=== PATIENT | female | born 1960 | race American Indian/Alaskan Native ===

== ENCOUNTER 2017-01-19 17:17 | Emergency (ER) | payer MEDICARE ==
[2017-01-19 18:13] LABS: Basophils % (Auto) 0.1 % (0.0-1.8); Eosinophils % (Auto) 0.7 % (0.0-4.3); Hematocrit 38.7 % (30.3-42.9); Hemoglobin 13.2 gm/dl (10.1-14.3); Mean Corpuscular HGB Conc 34 % (30-34); Mean Corpuscular Hemoglobin 33 pg (28-32); Mean Corpuscular Volume 95 fl (79-97); Platelet Count 244 K/mm3 (140-440); Red Blood Count 4.05 M/mm3 (3.65-5.03); Red Cell Distribution Width 13.3 % (13.2-15.2)
[2017-01-19 18:30] LABS: Anion Gap 14 mmol/L; BUN/Creatinine Ratio 15.71; Blood Urea Nitrogen 11 mg/dL (7-17); Calcium 8.8 mg/dL (8.4-10.2); Carbon Dioxide 29 mmol/L (22-30); Chloride 100.7 mmol/L (98-107); Glucose 101 mg/dL (65-100); Sodium 140 mmol/L (137-145)
--- NOTE | 2017-01-19 19:07 | XRay Report ---
FINAL REPORT EXAM: XR ELBOW 3 LT HISTORY: swelling / pain left elbow s/p bite possible infe TECHNIQUE: Three views of the left elbow PRIORS: None. FINDINGS: The bones are normally aligned and mineralized. The joint spaces are well-preserved. There is no evidence of acute fracture. There is soft tissue swelling along the olecranon. IMPRESSION: No evidence of acute fracture or subluxation. Tissue swelling along the olecranon. Question olecranon bursitis. This could be confirmed with ultrasound.
[2017-01-19 21:40] VITALS: BP 176/96
--- NOTE | 2017-01-19 22:39 | Emergency Department Report ---
ED Animal Bite HPI - General Chief Complaint: Animal Bite Stated Complaint: SPIDER BITE LEFT ARM Time Seen by Provider: 01/19/17 21:58 Source: patient Mode of arrival: Ambulatory Limitations: No Limitations - History of Present Illness Initial Comments: 56-year-old female past medical history anxiety presents with complaint of 5 days of redness and swelling to left lateral forearm near elbow. Patient is visibly ranging her left elbow. Subjective fever chills. Denies any nausea or vomiting. Denies any direct trauma. Patient states she may have been bitten by a spider near her forearm a few days ago. Visible redness and swelling and erythema to left elbow region MD Complaint: animal bite Onset/Timin -: days(s) Left: Elbow (redness and swelling left elbow region, appears cellulitic) Animal Control Notified: No Pain Description: burning Severity scale (0 -10): 6 Context: unprovoked - Related Data Patient Tetanus UTD: No Previous Rx's Medication Instructions Recorded Last Taken Type Acetaminophen/Codeine [Tylenol 1 tab PO Q6H PRN #12 tab 01/20/17 Unknown Rx /Codeine # 3 tab] Clindamycin [Clindamycin CAP] 300 mg PO Q6H #28 capsule 01/20/17 Unknown Rx Hydrochlorothiazide [HCTZ] 12.5 mg PO QDAY #30 capsule 01/20/17 Unknown Rx Ibuprofen [Motrin] 600 mg PO Q8H PRN #25 tablet 01/20/17 Unknown Rx Allergies Allergy/AdvReac Type Severity Reaction Status Date / Time Penicillins Allergy Shortness Verified 01/19/17 17:36 of Breath sulfamethoxazole Allergy Shortness Verified 01/19/17 17:36 [From Bactrim] of Breath trimethoprim [From Bactrim] Allergy Shortness Verified 01/19/17 17:36 of Breath ED Review of Systems ROS: Stated complaint: SPIDER BITE LEFT ARM Other details as noted in HPI Constitutional: denies: chills, fever Eyes: denies: eye pain, eye discharge, vision change ENT: denies: ear pain, throat pain Respiratory: denies: cough, shortness of breath, wheezing Cardiovascular: denies: chest pain, palpitations Endocrine: no symptoms reported Gastrointestinal: denies: abdominal pain, nausea, diarrhea Genitourinary: denies: urgency, dysuria, discharge Musculoskeletal: denies: back pain, joint swelling, arthralgia Skin: as per HPI, change in color (redness), pruritus. denies: rash, lesions Neurological: denies: headache, weakness, paresthesias Psychiatric: denies: anxiety, depression Hematological/Lymphatic: denies: easy bleeding, easy bruising ED Past Medical Hx - Past Medical History Hx Hypertension: Yes Hx HIV: No - Surgical History Additional Surgical History: in vitro fert - Social History Smoking Status: Current Every Day Smoker Substance Use Type: Alcohol - Medications Home Medications: Home Medications Medication Instructions Recorded Confirmed Last Taken Type Acetaminophen/Codeine [Tylenol 1 tab PO Q6H PRN #12 tab 01/20/17 Unknown Rx /Codeine # 3 tab] Clindamycin [Clindamycin CAP] 300 mg PO Q6H #28 capsule 01/20/17 Unknown Rx Hydrochlorothiazide [HCTZ] 12.5 mg PO QDAY #30 capsule 01/20/17 Unknown Rx Ibuprofen [Motrin] 600 mg PO Q8H PRN #25 tablet 01/20/17 Unknown Rx ED Physical Exam - General Limitations: No Limitations General appearance: alert, in no apparent distress - Head Head exam: Present: atraumatic, normocephalic - Eye Eye exam: Present: normal appearance, PERRL, EOMI - ENT ENT exam: Present: mucous membranes moist - Neck Neck exam: Present: normal inspection - Respiratory Respiratory exam: Present: normal lung sounds bilaterally. Absent: respiratory distress - Cardiovascular Cardiovascular Exam: Present: regular rate, normal rhythm. Absent: systolic murmur, diastolic murmur, rubs, gallop - GI/Abdominal GI/Abdominal exam: Present: soft, normal bowel sounds - Extremities Exam Extremities exam: Present: normal inspection - Expanded Upper Extremity Exam Left Shoulder Exam: Present: normal inspection, full ROM Upper Arm exam: Present: normal inspection, full ROM Elbow exam: Present: full ROM (elbow felxion and extension fully itnact on exam) , tenderness, swelling, other (small abscess below left elbow lateral forearm) Forearm Wrist exam: Present: normal inspection, full ROM Hand Wrist exam: Present: normal inspection, full ROM Vascular: Present: radial pulse (distal pulses intact) - Back Exam Back exam: Present: normal inspection - Neurological Exam Neurological exam: Present: alert, oriented X3, CN II-XII intact, normal gait - Psychiatric Psychiatric exam: Present: normal affect, normal mood - Skin Skin exam: Present: warm, dry, intact, normal color. Absent: rash ED Course Vital Signs 01/19/17 01/19/17 17:29 21:39 Temperature 98.5 F 98.1 F Pulse Rate 80 73 Respiratory 17 20 Rate Blood Pressure 162/102 Blood Pressure 176/96 [Left] O2 Sat by Pulse 98 100 Oximetry - I & D Left Arm Type of Procedure: Simple Blade Size: 11 I & D Procedure: betadine prep Critical care attestation.: If time is entered above; I have spent that time in minutes in the direct care of this critically ill patient, excluding procedure time. Critical Care Time: A/P: Left forearm abscess and cellulitis 1-clindamycin x7 days 2-short course Tylenol 3, Motrin when necessary for pain 3-borders of cellulitis marked 4-x-ray and labs within normal limits 5-wound culture sent 6-I advised patient to return to the ED if symptoms worsen or she develops fevers chills nausea vomiting inability to range left elbow ED Disposition Clinical Impression: Abscess Cellulitis Qualifiers: Site of cellulitis of extremity: upper extremity Laterality: left Disposition: DC-01 TO HOME OR SELFCARE Is pt being admited?: No Does the pt Need Aspirin: No Condition: Stable Instructions: Cellulitis (ED), Abscess Incision and Drainage (ED), Abscess (ED) Additional Instructions: Patient to return to the ED in 48-72 hours for wound check Prescriptions: Acetaminophen/Codeine [Tylenol /Codeine # 3 tab] 1 tab PO Q6H PRN #12 tab PRN Reason: Pain Clindamycin [Clindamycin CAP] 300 mg PO Q6H #28 capsule Hydrochlorothiazide [HCTZ] 12.5 mg PO QDAY #30 capsule Ibuprofen [Motrin] 600 mg PO Q8H PRN #25 tablet PRN Reason: Pain Referrals: [facility] [Outside] - 3-5 Days JULIA GARRETT MD [Staff Physician] - 3-5 Days Time of Disposition: 00:54
[2017-01-19] MEDS ORDERED: CLEOCIN 600 MG/50 mL 600 MG/50 ML BAG IV ONE (22:47)
[2017-01-20] MEDS ORDERED: NORCO 10/325 PO ONE (00:49)
[2017-01-20] MEDS ORDERED: ZOFRAN ODT PO ONE (00:49)
== END 2017-01-20 01:55 | disposition home or self-care (01) ==
LOC: ED 17:17
DX: L02.414 Cutaneous abscess of left upper limb (principal); L03.114 Cellulitis of left upper limb; I10 Essential (primary) hypertension; F17.200 Nicotine dependence, unspecified, uncomplicated
CPT/HCPCS: 36415; 80048; 85025; 87076; 87116; 87186; 96365; 99284; Q0162